=== PATIENT | male | born 1955 | race Caucasian/White ===

== ENCOUNTER 2016-11-18 23:12 | Emergency (ER) | payer BC ==
[2016-11-18 22:26] LABS: BASOPHILS 0.3 %; BASOPHILS ABSOLUTE 0.02 10/3/uL (0.0-0.16); EOSINOPHILS 1.5 %; ER CBC TAT 0 Hrs 07 Mins; IMMATURE GRANULOCYTES 0.3 %; IMMATURE GRANULOCYTES ABSOLUTE 0.02 10/3/uL (0.0-0.11); LYMPHOCYTES 36.1 %; LYMPHOCYTES ABSOLUTE 2.37 10/3/uL (0.67-4.30); MEAN CORPUS HGB CONC 34.2 g/dL (32.0-36.0); MEAN CORPUSCULAR HEMOGLOB 29.1 pg (26.0-34.0); MEAN CORPUSCULAR VOLUME 85.1 fL (80-100); MONOCYTES 9.9 %; MONOCYTES ABSOLUTE 0.65 10/3/uL (0.21-1.20); NEUTROPHILS 51.9 %; PLATELET COUNT 177 10/3/uL (150-400); RBC DISTRIBUTION WIDTH 12.8 % (12.0-16.0); RED CELL COUNT 5.57 10/6/uL (4.7-6.1); WHITE BLOOD CELLS 6.6 10/3/uL (4.5-10.5)
[2016-11-18 22:27] LABS: HEMATOCRIT 47.4 % (40.0-51.0); HEMOGLOBIN 16.2 g/dL (13.6-17.8); MANUAL DIFF NO %
[2016-11-18 22:34] LABS: INTERNATIONAL NORMAL RATI 1.3 UNITS (-); PARTIAL THROMBO TIME 28.5 SEC (22.5-37.2)
[2016-11-18 22:43] LABS: ALBUMIN 3.7 G/DL (3.5-5.0); ALKALINE PHOSPHATASE 75 U/L (45-117); CALCIUM, SERUM 8.9 MG/DL (8.5-10.4); CHLORIDE, SERUM 102 MMOL/L (96-112); CO2 (CARBON DIOXIDE) 27 MMOL/L (24-34); GFR AFRICAN AMERICAN 74 ML/MIN (>=60); GFR NON AFRICAN AMERICAN 64 ML/MIN (>=60); GLOBULIN 3.6 G/DL (2.5-4.1); GLUCOSE, SERUM 129 MG/DL (60-99); SGPT(ALT) 31 U/L (5-65); SODIUM, SERUM 137 MMOL/L (135-148); TOTAL BILIRUBIN 0.7 MG/DL (0-1.2); TOTAL PROTEIN 7.3 G/DL (6.0-8.5)
[2016-11-18 22:44] LABS: BUN (BLOOD UREA NITROGEN) 24 MG/DL (6-23); SGOT(AST) 21 U/L (5-40)
[~2016-11-18 23:12] MED LIST: ASAB PO; BENICAR40 PO; COUMADIN10 MG PO; COUMADIN7.5 MG PO; LOVENOX1C SC; PRAVACHOL40 MG PO
[2016-11-19] MEDS ORDERED: XARELTO20 MG PO (13:19)
[2016-11-19] MEDS ORDERED: PRILOSEC40 MG PO (13:20)
[2016-11-19] MEDS ORDERED: VITAMIN D31000 UNIT PO (13:20)
[2016-11-19] MEDS ORDERED: PCET PO (13:39)
== END 2016-11-18 23:40 | disposition home or self-care (01) ==
LOC: ER 23:12
PROVIDERS: Nurse Practitioner
DX: S82.141A Displaced bicondylar fracture of right tibia, initial encounter for closed fracture (principal); K21.9 Gastro-esophageal reflux disease without esophagitis; Z86.718 Personal history of other venous thrombosis and embolism; Z85.46 Personal history of malignant neoplasm of prostate; Z79.01 Long term (current) use of anticoagulants; Z79.899 Other long term (current) drug therapy; W19.XXXA Unspecified fall, initial encounter; Y93.67 Activity, basketball
CPT/HCPCS: 71010; 73560-RT; 80053; 85025; 85610; 85730; 96374; 99285; A9270-GY; J1170; J2405

== ENCOUNTER 2016-11-23 06:15 | Observation (INO) | payer BC ==
[2016-11-19 17:29] LABS: BASOPHILS 0.1 %; BASOPHILS ABSOLUTE 0.01 10/3/uL (0.0-0.16); EOSINOPHILS 0.8 %; EOSINOPHILS ABSOLUTE 0.07 10/3/uL (0.0-0.53); HEMATOCRIT 48.3 % (40.0-51.0); HEMOGLOBIN 15.9 g/dL (13.6-17.8); IMMATURE GRANULOCYTES 0.2 %; IMMATURE GRANULOCYTES ABSOLUTE 0.02 10/3/uL (0.0-0.11); LYMPHOCYTES 25.9 %; LYMPHOCYTES ABSOLUTE 2.38 10/3/uL (0.67-4.30); MEAN CORPUS HGB CONC 32.9 g/dL (32.0-36.0); MEAN PLATELET VOLUME 9.7 fL (9.2-13.0); MONOCYTES 12.2 %; MONOCYTES ABSOLUTE 1.12 10/3/uL (0.21-1.20); NEUTROPHILS 60.8 %; NEUTROPHILS ABSOLUTE 5.58 10/3/uL (2.02-8.40); PLATELET COUNT 192 10/3/uL (150-400); RBC DISTRIBUTION WIDTH 13.1 % (12.0-16.0); RED CELL COUNT 5.68 10/6/uL (4.7-6.1); WHITE BLOOD CELLS 9.2 10/3/uL (4.5-10.5)
[2016-11-19 17:31] LABS: MANUAL DIFF NO %
[2016-11-19 17:42] LABS: PARTIAL THROMBO TIME 33.8 SEC (22.5-37.2); PROTIME (NOT ORD) 22.3 SEC (12.0-14.5)
[2016-11-19 17:46] LABS: ALBUMIN 3.8 G/DL (3.5-5.0); ALKALINE PHOSPHATASE 80 U/L (45-117); BUN (BLOOD UREA NITROGEN) 23 MG/DL (6-23); CHLORIDE, SERUM 105 MMOL/L (96-112); CO2 (CARBON DIOXIDE) 27 MMOL/L (24-34); CREATININE 1.19 MG/DL (0.70-1.30); GFR AFRICAN AMERICAN 75 ML/MIN (>=60); GFR NON AFRICAN AMERICAN 65 ML/MIN (>=60); GLOBULIN 3.7 G/DL (2.5-4.1); POTASSIUM, SERUM 4.1 MMOL/L (3.5-5.3); SGOT(AST) 18 U/L (5-40); SGPT(ALT) 32 U/L (5-65); SODIUM, SERUM 139 MMOL/L (135-148); TOTAL BILIRUBIN 0.8 MG/DL (0-1.2); TOTAL PROTEIN 7.5 G/DL (6.0-8.5)
[2016-11-19 17:51] LABS: GLUCOSE, SERUM 76 MG/DL (60-99)
[2016-11-19 19:21] LABS: ASCORBIC ACID (UR NOT ORDER) NEG (NEG); BILIRUBIN, URINE NEGATIVE (NEG); KETONE, URINE NEGATIVE (NEG); LEUKOCYTE ESTERASE(NOT OR NEG (NEG); WBC (NOT ORDERED) (RFLEX) 1 (0-5)
--- NOTE | ~2016-11-23 | OP ---
Record Of Operation [facility] [address] [place]. [address] NAME: MITUL DE LA FUENTE JR : 51 STATUS : ADM IN PAT#: [id number] AGE: 61 ADM/REG DATE : 11/23/16 MR#: [id number] REPORT SERV DATE: 11/23/16 DICTATED BY: MITUL BRODERICK DATE: 11/23/16 REPORT STATUS : Draft TRANSCRIBED BY: MODL DATE: 11/23/16 DATE OF PROCEDURE: 11/23/2016 PREOPERATIVE DIAGNOSIS: Right quadriceps tendon rupture. POSTOPERATIVE DIAGNOSIS: Right quadriceps tendon rupture. PROCEDURE: Right quadriceps tendon repair. SURGEON: Mitul Broderick M.D. ECONOMIC ANALYST: Ignacio Swenson. ANESTHESIA: General with LMA. ESTIMATED BLOOD LOSS: Minimal. COMPLICATIONS: None. DRAINS: None. TOURNIQUET TIME: 28 minutes. INDICATIONS FOR SURGERY: Mr. De La Fuente is a 61-year-old male, who sustained the above- mentioned injury while playing basketball, was recommended that he undergo repair. Risks of the procedure as detailed in the history and physical, and operative consent were discussed prior to proceeding. He fully understood and has requested to proceed. DESCRIPTION OF PROCEDURE: The patient was brought to the operating room, and after adequate induction of general anesthesia, positioned in a supine position. All appropriate pressure points were padded. He received Ancef IV preoperatively. The right knee was prepped and draped in the usual sterile fashion. A time-out was performed confirming the appropriate surgical side and site. The patient's leg was exsanguinated with an Tc wrap and a tourniquet was inflated to 350 mmHg pressure. An anterior mid line incision was made centered over the distal quadriceps tendon. The skin and subcutaneous tissues were incised sharply with a #10 blade. Electrocautery was used as needed to maintain hemostasis. The retinaculum was divided and the extensor mechanism was exposed. There was complete rupture of the quadriceps tendon with the tear extending into the retinaculum both medially and laterally. The patella was debrided off any frayed tendon. The edges of the quadriceps tendon were then debrided back to healthy-appearing tenderness tissue. Three #5 FiberWire sutures were placed in modified Thierry fashion through the quadriceps tendon. Four drill holes were then drilled through the patella longitudinally, and the sutures were passed so that they could be tied over a bone bridge. The tendon was then tensioned then the sutures were sequentially tied. The medial and lateral retinacula were then repaired using interrupted #1 Ethibond suture in jrjuya-[id number]-hbyyd fashion. The knee was carefully flexed to 70 degrees. There was no gapping in the repair. Wound was copiously irrigated with normal Record Of Operation [address] [place]. [address] NAME: MITUL DE LA FUENTEMARIKA CAMPA : 51 STATUS : ADM IN [facility]#: [id number] AGE: 61 ADM/REG DATE : 11/23/16 MR#: [id number] REPORT SERV DATE: 11/23/16 DICTATED BY: MITUL BRODERICK DATE: 11/23/16 REPORT STATUS : Draft TRANSCRIBED BY: YUNIER DATE: 11/23/16 saline. The tourniquet was deflated and meticulous hemostasis was obtained. The subcutaneous tissues were approximated with interrupted 2-0 Vicryl suture and the skin was stapled. A sterile dressing was applied, and the patient was awakened and taken to the recovery room in stable condition. POSTOPERATIVE PLAN: He is to be mobilized, touch down weightbearing in a brace at all times. He is to have no knee range of motion. Follow up with me in two weeks. He will be on initially Lovenox followed by Xarelto for DVT prophylaxis. HERBER/YUNIER Mitul Broderick M.D. / [id number] CC: Mitul Broderick M.D.
[~2016-11-23 06:15] MED LIST changes: +PCET PO; +PRILOSEC40 MG PO; +VITAMIN D31000 UNIT PO; +XARELTO20 MG PO
[2016-11-23 07:18] LABS: INTERNATIONAL NORMAL RATI 1.1 UNITS (-)
[2016-11-23 07:19] LABS: PROTIME (NOT ORD) 14.1 SEC (12.0-14.5)
[2016-11-24 04:54] LABS: HEMATOCRIT 44.4 % (40.0-51.0)
[2016-11-24 05:22] LABS: CALCIUM, SERUM 8.7 MG/DL (8.5-10.4); CHLORIDE, SERUM 104 MMOL/L (96-112); CO2 (CARBON DIOXIDE) 26 MMOL/L (24-34); CREATININE 1.18 MG/DL (0.70-1.30); GFR AFRICAN AMERICAN 76 ML/MIN (>=60); GFR NON AFRICAN AMERICAN 65 ML/MIN (>=60); POTASSIUM, SERUM 4.3 MMOL/L (3.5-5.3); SODIUM, SERUM 138 MMOL/L (135-148)
[2016-11-24 05:23] LABS: BUN (BLOOD UREA NITROGEN) 19 MG/DL (6-23); GLUCOSE, SERUM 100 MG/DL (60-99)
== END 2016-11-24 11:54 | disposition home or self-care (01) ==
LOC: SDC/OF 06:15 → PACU 09:42 → 3JRC 11:04
PROVIDERS: Specialist
PROC: 0LQL0ZZ Repair Right Upper Leg Tendon, Open Approach (ICD-10-PCS; principal; 2016-11-23 08:00)
DX: S76.111A Strain of right quadriceps muscle, fascia and tendon, initial encounter (principal); E78.00 Pure hypercholesterolemia, unspecified; I10 Essential (primary) hypertension; G47.33 Obstructive sleep apnea (adult) (pediatric); H91.90 Unspecified hearing loss, unspecified ear; K21.9 Gastro-esophageal reflux disease without esophagitis; Z86.718 Personal history of other venous thrombosis and embolism; Z79.891 Long term (current) use of opiate analgesic; Z79.52 Long term (current) use of systemic steroids; Z79.899 Other long term (current) drug therapy; Z90.89 Acquired absence of other organs; Z98.890 Other specified postprocedural states; Z82.49 Family history of ischemic heart disease and other diseases of the circulatory system; Z87.442 Personal history of urinary calculi
CPT/HCPCS: 36415; 71020; 80048; 80053; 81001; 85014; 85018; 85025; 85610; 85730; 86850; 86900; 86901; 93005; 96372; 96374; 96375; 96376; 97116-GP; 97161-GP; 97165-GO; A9270-GY; G0378; J0690; J1170; J2250; J2370; J2405; J2710; J2795; J3010